=== PATIENT | female | born 1955 | race Native Hawaiian/Other Pacific Islander ===

== ENCOUNTER 2016-07-22 01:03 | Emergency (ER) | payer MEDICAID ==
[2016-07-22 01:19] VITALS: RESP 18
[2016-07-22] MEDS ORDERED: Oxycodone/Acetaminophen 5/325 mg Tab PO STA (01:35)
[2016-07-22] MEDS ORDERED: Oxycodone/Acetaminophen 5/325 mg Tab ONE (02:01)
--- NOTE | 2016-07-22 02:22 | C.PDOC ---
History Of Present Illness Patient c/o right sided toothache from yesterday. Patient sts she has a dentist who extracted several teeth from both side recently, but she has multiple dental cavities that meed to be treated. Patient denies fever. Time Seen by Provider: 07/22/16 01:24 Chief Complaint (Nursing): Dental Pain History Per: Patient History/Exam Limitations: no limitations Onset/Duration Of Symptoms: Days (2) Current Symptoms Are (Timing): Still Present Severity: Severe Pain Scale Rating Of: 10 Quality: Positive for: "Pain" Recent travel outside of the [place]: No Past Medical History Reviewed: Historical Data, Nursing Documentation, Vital Signs Vital Signs: Last Vital Signs Temp 98.1 F 07/22/16 02:38 Pulse 61 07/22/16 02:38 Resp 18 07/22/16 02:38 BP 117/75 07/22/16 02:38 Pulse Ox 96 07/22/16 02:38 - Medical History PMH: No Chronic Diseases Denies: Chronic Kidney Disease Family History: States: Unknown Family Hx - Social History Hx Alcohol Use: No Hx Substance Use: No - Immunization History Hx Tetanus Toxoid Vaccination: No Hx Influenza Vaccination: No Hx Pneumococcal Vaccination: No Review Of Systems Except As Marked, All Systems Reviewed And Found Negative. ENT: Positive for: Other (toothache). Negative for: Mouth Swelling, Throat Swelling Physical Exam - Physical Exam Appears: Well, Non-toxic, No Acute Distress Skin: Normal Color, Warm, No Rash Head: Atraumatic, Normacephalic Eye(s): bilateral: Normal Inspection Nose: Normal, No Discharge Oral Mucosa: Moist Tongue: Normal Appearing, No Lesions Lips: No Normal Appearing, No Swelling Teeth: No Normal Dentition (poor dentition), Caries (b/l) Throat: Normal Neck: Normal, Supple Neurological/Psych: Oriented x3, Normal Speech, Normal Cognition ED Course And Treatment O2 Sat by Pulse Oximetry: 97 Progress Note: Patient was treated with percocet and PenVK with improvement. Patient was d/c home with dentist follow up. Disposition - Disposition Referrals: Non [facility] Provider, [Primary Care Provider] - Disposition: HOME/ ROUTINE Disposition Time: 02:20 Condition: IMPROVED Additional Instructions: Follow up with PMD and dentist within 1-2 days. Return to ED if feel worse. Prescriptions: Ibuprofen [Motrin Tab] 600 mg PO Q8 #30 tab Penicillin VK [Pen-Vee K] 500 mg PO Q6 #28 tab traMADol [Ultram] 50 mg PO Q6 #20 tab Instructions: Toothache (ED) - Clinical Impression Clinical Impression: Toothache
[2016-07-22 02:39] VITALS: BP 117/75; PULSE 61; TEMP 98.1
[2016-07-22 03:48] VITALS: O2SAT 97
== END 2016-07-22 02:40 | disposition home or self-care (01) ==
LOC: C.ER 01:03 → SUPCPDRO 01:03 → C.ER 02:40
DX: K08.89 Other specified disorders of teeth and supporting structures (principal)